=== PATIENT | female | born 1960 | race Caucasian/White ===

== ENCOUNTER 2020-09-22 07:00 | Outpatient (RCR) | payer OTHER | END 2020-10-05 | LOC: PT 07:00 | PROVIDERS: ATTEND Specialist | DX: M17.0 Bilateral primary osteoarthritis of knee (principal) ==

== ENCOUNTER 2021-03-25 08:25 | Observation (INO) | payer BC ==
[2021-03-23 15:52] LABS: BASOPHILS # (AUTO) 0.1 (0.0-0.1); BASOPHILS % 0.9 % (0.0-1.0); EOSINOPHILS % 9.9 % (0.0-6.0); HEMATOCRIT 38.4 % (34.2-44.1); HEMOGLOBIN 12.1 g/dL (12.0-16.0); LYMPHOCYTES # (AUTO) 2.9 (1.0-3.2); LYMPHOCYTES % 27.9 % (18.0-39.1); MEAN CORPUSCULAR HEMOGLOBIN 29.2 pg (28-32); MEAN CORPUSCULAR HGB CONC 31.5 g/dL (31-35); MEAN CORPUSCULAR VOLUME 92.5 fL (81-99); MONOCYTES # (AUTO) 1.1 (0.2-0.8); NEUTROPHILS # (AUTO) 5.3 (2.1-6.9); NEUTROPHILS % 50.9 % (38.7-80.0); PLATELET COUNT 293 x10e3/uL (140-360); RED BLOOD COUNT 4.15 x10e6/uL (3.6-5.1)
[2021-03-23 16:07] LABS: INR 0.77; PROTHROMBIN TIME 11.3 seconds (11.9-14.5)
[2021-03-23 16:08] LABS: PARTIAL THROMBOPLASTIN TIME 26.4 seconds (23.8-35.5)
[2021-03-23 16:12] LABS: ANION GAP 12.6 mmol/L (8-16); BLOOD UREA NITROGEN 14 mg/dL (7-26); BUN/CREATININE RATIO 17 (6-25); CALCIUM 9.3 mg/dL (8.4-10.2); CARBON DIOXIDE 25 mmol/L (22-29); CHLORIDE 108 mmol/L (98-107); CREATININE, SERUM 0.81 mg/dL (0.57-1.11); EST GLOMERULAR FILTRATION RATE > 60 ML/MIN (60-); GLUCOSE 93 mg/dL (74-118); POTASSIUM 4.6 mmol/L (3.5-5.1); SODIUM 141 mmol/L (136-145)
[~2021-03-25] VITALS: Ht 170.2 cm; Wt 104.3 kg
[~2021-03-25 08:25] MED LIST: ACETAMINOPHEN 1000 MG/100 ML 100 ML IV ONE; BUPROPION XL150 MG PO; BUTALB-ACETAMI1 EACH PO; CELEBREX200 MG PO; CYCLOBENZAPRINE10 MG PO; IBUPROFEN 800MG/ 200ML 200 ML IV ONE; LIDOCAINE HCL (LTA) 4 ML SOLN ONE; MAGNESIUM4 MEQ/1 M1 PO; MULTI-VITAMIN1 EACH PO; PROPRANOLOL HCL80 MG PO; SUGAMMADEX SODIUM 200 MG/2 ML VIAL IV ONE; VENLAFAXINE HCL75 MG PO
[2021-03-25] MEDS ORDERED: BUPIVACAINE 0.5%/EPI 30 ML SDV INJ ONE (08:26)
[2021-03-25] MEDS ORDERED: VANCOMYCIN HCL 1 GM VIAL ONE (08:26)
[2021-03-25] MEDS ORDERED: THROMBIN FOR SOLN 5,000 UNIT VIAL ONE (08:26)
[2021-03-25] MEDS ORDERED: CEFAZOLIN SOD 1 GM/NS 50ML 100 ML IV ONE (09:28)
[2021-03-25] MEDS ORDERED: CELECOXIB 200 MG CAP PO PRN (12:00)
[2021-03-25] MEDS ORDERED: MAGNESIUM/ALUMINUM/SIMETHICONE 30 ML UDC PO PRN (12:00)
[2021-03-25] MEDS ORDERED: OXYCODONE/ACETAMINOPHEN 5-325 1 EACH TABLET PO PRN (12:00)
[2021-03-25] MEDS ORDERED: ACETAMINOPHEN 325 MG TAB PO PRN (12:00)
[2021-03-25] MEDS: LACTATED RINGER'S 1,000 ML IV SCH ×2 (12:00→17:41)
[2021-03-25] MEDS ORDERED: CARISOPRODOL 350 MG TAB PO PRN (12:00)
[2021-03-25] MEDS ORDERED: ACETAMIN/BUTALBITAL/CAFFEINE TAB PO PRN (12:00)
[2021-03-25] MEDS ORDERED: PROMETHAZINE HCL (IM) 25 MG/ML VIAL IM PRN (12:00)
[2021-03-25] MEDS ORDERED: CYCLOBENZAPRINE HCL 10 MG TAB PO PRN (12:00)
[2021-03-25] MEDS ORDERED: HYDROCODON-ACE1 EA12 PO (12:03)
[2021-03-25] MEDS ORDERED: HYDROMORPHONE 1MG/1ML INJ ONE ×2 (12:26→14:42)
[2021-03-25] MEDS ORDERED: CEFAZOLIN SOD 1 GM/NS 50ML 50 ML IV SCH (14:00)
[2021-03-25 16:15] VITALS: BP 108/69
[2021-03-25] MEDS ORDERED: GLYCOPYRROLATE INJ 0.2 MG/ML VIAL ONE (16:30)
[2021-03-25] MEDS ORDERED: PROPOFOL IV EMULSION 10 MG/ML 20 ML VIAL ONE (16:30)
[2021-03-25] MEDS ORDERED: LIDOCAINE HCL 2% LOCAL INJ 5 ML SDV VIAL INJ ONE (16:30)
[2021-03-25] MEDS ORDERED: DEXAMETHASONE SOD PHOS INJ 4 MG/ML VIAL ONE (16:30)
[2021-03-25] MEDS ORDERED: POVIDONE IODINE 0.05% 0.05 % ML PO ONE (16:30)
[2021-03-25] MEDS ORDERED: ROCURONIUM BROMIDE 10 MG/ML 5ML VIAL IV ONE (16:30)
[2021-03-25] MEDS ORDERED: ONDANSETRON HCL INJ 2MG/ML 2ML 2 MG/ML VIAL ONE (16:30)
[2021-03-25] MEDS ORDERED: NEOSTIGMINE 1 MG/ML 10ML VIAL ONE (16:30)
[2021-03-25] MEDS ORDERED: SEVOFLURANE INHAL SOLN 250 ML PEN BTL ONE (16:30)
[2021-03-25] MEDS ORDERED: LIDOCAINE HCL 2% JELLY 5 ML TUBE ONE (16:30)
[2021-03-25] MEDS ORDERED: FENTANYL CITRATE/PF 100MCG/2 ML INJ ONE (16:54)
[2021-03-25] MEDS ORDERED: MIDAZOLAM HCL 2 MG/2 ML VIAL ONE (16:54)
[2021-03-25] MEDS: CEPACOL SORE THROAT LOZENGES PO PRN ×2 (17:13→22:43)
[2021-03-25] MEDS: CEFAZOLIN SOD 1 GM/NS 50ML 50 ML IV SCH (17:40)
[2021-03-25] MEDS: HYDROMORPHONE 2MG/ML 2 MG/ML ML IV PRN ×2 (17:41→22:30)
[2021-03-25 19:39] VITALS: BP 106/76
[2021-03-25] MEDS ORDERED: VENLAFAXINE HCL 75 MG CAPCR PO SCH (21:00)
[2021-03-25] MEDS ORDERED: ZOLPIDEM TARTRATE 5 MG TAB PO PRN (21:00)
[2021-03-25 21:30] VITALS: BP 106/76
[2021-03-25] MEDS: ONDANSETRON HCL INJ 2MG/ML 2ML 2 MG/ML VIAL IV PRN (22:30)
[2021-03-26 00:03] VITALS: BP 132/85
[2021-03-26] MEDS: LACTATED RINGER'S 1,000 ML IV SCH (02:05)
[2021-03-26] MEDS: CEFAZOLIN SOD 1 GM/NS 50ML 50 ML IV SCH ×2 (02:28→09:19)
[2021-03-26] MEDS: ONDANSETRON HCL INJ 2MG/ML 2ML 2 MG/ML VIAL IV PRN ×2 (02:35→06:45)
[2021-03-26] MEDS: HYDROMORPHONE 2MG/ML 2 MG/ML ML IV PRN ×2 (02:35→06:45)
[2021-03-26 04:44] VITALS: BP 139/95
[2021-03-26 07:59] VITALS: BP 116/75
[2021-03-26] MEDS ORDERED: PROPRANOLOL HCL 80 MG CAPCR PO SCH (09:00)
[2021-03-26] MEDS ORDERED: MULTIVITAMINS/MINERALS TAB PO SCH (09:00)
[2021-03-26] MEDS ORDERED: BUPROPION HCL 150 MG TABCR PO SCH (09:00)
[2021-03-26] MEDS: CEPACOL SORE THROAT LOZENGES PO PRN (09:54)
[2021-03-26 10:05] VITALS: BP 116/75
== END 2021-03-26 10:55 | disposition home or self-care (01) ==
LOC: OR 08:25 → PACU V 14:54 → MED/SURG 15:58
PROVIDERS: ADMIT Neurological Surgery; ATTEND Neurological Surgery
DX: M50.120 Mid-cervical disc disorder, unspecified level (principal); Z20.822 Contact with and (suspected) exposure to COVID-19; Z01.818 Encounter for other preprocedural examination; I10 Essential (primary) hypertension
CPT/HCPCS: 20931; 22551; 22552 ×2; 36415; 71046; 72040; 77003; 80048; 85025; 85610; 85730; 86850; 86900; 88304; 93005; G0378 ×2; J0131; J0690 ×2; J1100; J1170 ×3; J2001 ×2; J2250; J2405 ×2; J2704; J2710; J3010; J3370; J7121; U0002; C1713

== ENCOUNTER → 2021-04-23 | Outpatient (CLI) | payer BC ==
[~2021-04-23] MED LIST changes: -ACETAMINOPHEN 1000 MG/100 ML 100 ML IV ONE; +HYDROCODON-ACE1 EA12 PO; -IBUPROFEN 800MG/ 200ML 200 ML IV ONE; -LIDOCAINE HCL (LTA) 4 ML SOLN ONE; -SUGAMMADEX SODIUM 200 MG/2 ML VIAL IV ONE
== END ==
LOC: RAD 08:55
PROVIDERS: ATTEND Neurological Surgery
DX: M50.20 Other cervical disc displacement, unspecified cervical region (principal); M43.22 Fusion of spine, cervical region
CPT/HCPCS: 72050

== ENCOUNTER 2021-06-04 08:57 | Outpatient (RCR) | payer BC | END 2021-06-05 | LOC: PT 08:57 | PROVIDERS: ATTEND Neurological Surgery | DX: M50.120 Mid-cervical disc disorder, unspecified level (principal) ==

== ENCOUNTER 2021-06-25 10:00 | Outpatient (RCR) | payer BC | END 2021-07-06 | LOC: PT 10:00 | PROVIDERS: ATTEND Neurological Surgery | DX: M50.120 Mid-cervical disc disorder, unspecified level (principal); M62.81 Muscle weakness (generalized); M53.82 Other specified dorsopathies, cervical region | CPT/HCPCS: 97139 ==

== ENCOUNTER → 2021-10-28 | Outpatient (CLI) | payer BC | LOC: RAD 09:43 | PROVIDERS: ATTEND Neurological Surgery | DX: M50.20 Other cervical disc displacement, unspecified cervical region (principal); M43.22 Fusion of spine, cervical region | CPT/HCPCS: 72050 ==

== ENCOUNTER → 2022-06-28 | Outpatient (CLI) | payer BC | LOC: MRI 07:39 | PROVIDERS: ATTEND Psychiatry & Neurology Clinical Neurophysiology | DX: R41.3 Other amnesia (principal); Z98.890 Other specified postprocedural states | CPT/HCPCS: 70551; 72141 ==

== ENCOUNTER → 2022-12-15 | Outpatient (CLI) | payer BC | LOC: MRI 09:42 | PROVIDERS: ATTEND Nurse Practitioner Family | DX: M48.02 Spinal stenosis, cervical region (principal) | CPT/HCPCS: 72141 ==